=== PATIENT | male | born 1940 | race Caucasian/White ===

== ENCOUNTER 2019-09-03 18:32 | Emergency (ER) | payer MEDICARE, OTHER ==
[~2019-09-03] VITALS: Ht 177.8 cm; Wt 72.3 kg
--- NOTE | 2019-09-03 18:38 | NUR ---
Pt's family members brought the patient to the ED for evaluation. Pt was seen at [facility] in [place] for tremors in the right upper extremity and he appears to be hitting himself repeatedly. Pt's family members report the patient was released with a referral for mental health follow up but they want him to be evaluated further for medical concerns. Pt's [id number] Filipe's number given to the triage nurse to reach the him or the spouse regarding more details about the patient's situation.
[2019-09-03] MEDS ORDERED: LORazepam 1 MG tablet PO ONE (20:00)
[2019-09-03 21:44] LABS: BASOPHILS # (AUTO) 0.1 X10'3 (0-0.2); BASOPHILS % (AUTO) 0.8 % (0-1); EOSINOPHILS # (AUTO) 0.1 X10'3 (0-0.9); EOSINOPHILS % (AUTO) 0.8 % (0-6); HEMATOCRIT 41.2 % (42.0-52.0); HEMOGLOBIN 13.4 g/dl (14.0-17.9); LYMPHOCYTES # (AUTO) 1.3 X10'3 (1.1-4.8); LYMPHOCYTES % (AUTO) 10.9 % (21-51); MEAN CORPUSCULAR HGB CONC 32.6 g/dL (33.0-36.5); MEAN PLATELET VOLUME 7.8 FL (7.4-10.4); MONOCYTES # (AUTO) 1.1 X10'3 (0-0.9); NEUTROPHILS # (AUTO) 9.2 X10'3 (1.8-7.7); NEUTROPHILS % (AUTO) 78.5 % (42-75); PLATELET COUNT 268 X10'3 (140-440); RED BLOOD COUNT 4.48 X10'6 (4.70-6.10); WHITE BLOOD COUNT 11.8 X10'3 (4.5-11.0)
[2019-09-03 21:48] LABS: ALBUMIN 3.6 G/DL (3.4-5.0); ANION GAP 6 (8-16); BLOOD UREA NITROGEN 19 MG/DL (7-18); BUN/CREATININE RATIO 24.4 (5.4-32.0); CALCIUM 8.5 MG/DL (8.5-10.1); CHLORIDE 107 MMOL/L (99-107); CREATININE 0.78 MG/DL (0.60-1.10); GLUCOSE 232 MG/DL (70-104); POTASSIUM 3.3 MMOL/L (3.5-5.1); SODIUM 142 MMOL/L (135-145); TOTAL CARBON DIOXIDE 29.5 MMOL/L (24-32); eGFR > 90 ML/MIN
[2019-09-03 22:28] VITALS: BP 167/67
== END 2019-09-03 22:30 | disposition home or self-care (01) ==
LOC: ER 18:34
DX: R25.2 Cramp and spasm (principal)
CPT/HCPCS: 36415; 80048; 85025; 99284

== ENCOUNTER 2019-11-12 14:13 | Inpatient (IN) | payer MEDICARE, OTHER ==
[~2019-11-12] VITALS: Ht 177.8 cm; Wt 75.6 kg
[2019-11-12 14:40] VITALS: BP 156/78
[2019-11-12] MEDS ORDERED: mag hydrox/Alum hydrox/simeth 30ml oral suspension PO PRN (15:00)
[2019-11-12] MEDS ORDERED: loperamide 2mg capsule PO PRN (15:00)
[2019-11-12] MEDS ORDERED: magnesium hydroxide 30ml (MOM) UD suspension PO PRN (15:00)
[2019-11-12] MEDS ORDERED: traZODone 50mg tablet PO PRN (15:00)
[2019-11-12] MEDS ORDERED: acetaminophen 325mg tablet PO PRN ×2 (15:00)
--- NOTE | 2019-11-12 15:18 | NUR ---
Noted that pt on a CHO controlled diet with [facility] T2DM, A1c pending at this time. Will continue to follow and monitor need for DM education pending A1c results. Addendum: 11/12/19 at [address] Amended: Links added.
[2019-11-12] MEDS ORDERED: INSU100I31 SQ (16:43)
[2019-11-12] MEDS ORDERED: INSU100I52 SQ (16:43)
[2019-11-12] MEDS ORDERED: TRAZ-256 PO (16:43)
[2019-11-12] MEDS ORDERED: LEVO175T2 PO (16:43)
[2019-11-12] MEDS ORDERED: INSULIN ASPART 4 UNIT SQ SCH (17:15)
--- NOTE | 2019-11-12 17:39 | NUR ---
ADMIT NOTE Patient arrived at [facility] at 1445. Patient was escorted via wheelchair with Crystal, PCT and security. Patient presents as calm and cooperative. Patient showered and changed into green unit scrubs. Belongings were inventoried. Advisement was reviewed and given to patient, pt. voices understanding. Patient denies SI, states I was feeling like that because of these shakes and pt. shakes hand back and forth. Pt. states they gave me some kind of medicine and it helped, but unsure what medication it was. Pt. states I hope they figure it out, that is why I am here. Denies H/I, AH/VH. Noted some tremors in hands, but seems to be controllable. Pt. states I learned to deep breath and this seems to help. Reports some anxiety 08/07. Pt. is DM Type 1- he takes Novolog flexpen 4 units before each meal. POC blood glucose was 165 upon admit to [facility]. Basaglar 30 units HS. Reports trouble falling asleep, recently started on Trazadone 100mg HS. Noted pt. to be a little unstable when walking and standing. Patient states he sometimes uses a FWW at home. Last BM was 11/10 HS and was hard. Pt. 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
[2019-11-12] MEDS ORDERED: insulin Lispro (HumaLOG) vial - multi-dose SQ ONE (18:36)
[2019-11-12 20:10] VITALS: BP 162/78
[2019-11-12] MEDS ORDERED: insulin glargine (Lantus) pen - multi-dose SQ SCH (21:00)
[2019-11-12] MEDS: traZODone 50mg tablet PO PRN (21:22)
--- NOTE | 2019-11-12 21:29 | NUR ---
Patients night time glucose was 231. Per day shift inside sales agent time Lantus dose of 30 units is to remain that dose, no adjustments. This was verified by Dr. Romero and Reyna, insole filler.
[2019-11-12] MEDS: LORazepam 1 MG tablet PO PRN (22:06)
--- NOTE | 2019-11-12 22:06 | NUR ---
Patient is awake and complaining of anxiety and not feeling sleepy. Ativan 1mg PO given.
[2019-11-12] MEDS ORDERED: OLANZapine 5mg rapidly disint. tablet PO STA (22:39)
[2019-11-12] MEDS ORDERED: LORazepam 1 MG tablet PO ONE (22:40)
--- NOTE | 2019-11-12 23:01 | NUR ---
Patient continues to exhibit agitation. Patient complains of not sleeping and gets in a verbal argument and dispute with his roommate. contacted by [facility], orders received for Ativan 2 mg, Zyprexa Zytis 10 mg now. This was given. In addition Dr. Pink gave an order to repeat the Zyprexa Zytis in one hour prn.
--- NOTE | 2019-11-13 01:40 | NUR ---
Nursing Progress Note: Legal hold:5150 Client on involuntary status for: DTS. Report received from CHRISTINE Cintron with use of SBAR Why are they here: Patient arrived at [facility] at 1445. Patient was escorted via wheelchair with Crystal, PCT and security. Patient presents as calm and cooperative. Patient showered and changed into green unit scrubs. Belongings were inventoried. Advisement was reviewed and given to patient, pt. voices understanding. Patient denies SI, states I was feeling like that because of these shakes and pt. shakes hand back and forth. Pt. states they gave me some kind of medicine and it helped, but unsure what medication it was. Pt. states I hope they figure it out, that is why I am here. Denies H/I, AH/VH. Noted some tremors in hands, but seems to Assessment What has happened this shift: This patient is in his room following shift change. He is supine in bed, he has a walker at bedside. Patient stands to greet this fiction writer. Patient brings this writers attention to his right hand. Patient tells this fiction writer that " the only reason I'm here is to get some rest, and to get my hand tremors under control." The patients speech is pressured. He makes direct eye contact. Patient is agitated, he tells this fiction writer that he is supposed to get "some sort of medication for sleep, two large pills." The patient denies H/I, S/I, or any hallucinations. Patients evening blood sugar was 231. Patient reported to have eaten his full dinner. Lantus was given 30 units SQ. Late evening patient began experiencing more agitation. An Ativan 1mg was given PO. Trazadone 50 mg was given about 45 minutes prior for sleep without effect. Following Ativan this patient began exhibiting more agitation, he got into a verbal altercation with his roommate. Dr. Pink was contacted. Orders were given for Zyprexa Zytis 10 mg and Ativan 2mg. The patient took those medications as requested. The patient gradually went to sleep. Frequent rounding is being done to ensure patient safety. S/I, H/I: Patient denies. A/VH: Patient denies. Sleep: Will tally at 0500 hours. ADL's: Independent, patient uses walker. Group attendance: None on day shift. Were med's taken: Yes, patient is medication compliant. Any med S/E: None noted. Mental Status Exam Appearance: Somewhat disheveled looking, wearing green scrubs. Eye contact: Fair. Behavior: Agitated, angry at times. Speech: Pressured. Mood:Depressed. Affect: Flat. Thought process: Minimizes need to be here. Thought Content: Repetitive statements about just being here to get rest and stop right hand tremors. Cognition: Alert and oriented to place and year, not to situation. Insight: Poor. Judgment: Poor. Interventions PRN's used: Trazadone, Ativan, Zyprexa Zytis. Therapeutic interventions: 1:1 assessment, maintained a safe and therapeutic environment, provided clear and simple instructions, monitored behavior and need for intervention, provided redirection/reassurance as needed, encouragement to perform personal hygiene, limit setting, positive reinforcement, Q 15 minute safety checks. Restraints/seclusion/emergency medication: N/A Justification of Continued Inpatient Treatment: Pt continues to require a safe and supportive environment with medication adjustments to decrease risk of rehospitalization.
[2019-11-13] MEDS: insulin Lispro (HumaLOG) vial - multi-dose SQ SCH ×3 (07:00→18:09)
[2019-11-13 07:13] LABS: HEMOGLOBIN A1C 9.1 % (4.5-6.2)
[2019-11-13 07:14] LABS: CHOL/HDL RATIO 2.4 (0.00-4.99); CHOLESTEROL 132 MG/DL (0-200); HDL CHOLESTEROL 56 MG/DL (35-60); LDL CHOLESTEROL 60 MG/DL (50-100); TRIGLYCERIDES 83 MG/DL (20-135)
[2019-11-13] MEDS ORDERED: dextrose ORAL solution 15 GM/59 ML bottle PO PRN (07:25)
[2019-11-13] MEDS: dextrose ORAL solution 15 GM/59 ML bottle PO PRN (07:36)
[2019-11-13] MEDS: levoTHYROXINE 175mcg tablet PO SCH (07:36)
[2019-11-13 07:54] VITALS: BP 104/65
--- NOTE | 2019-11-13 09:12 | NUR ---
Hypoglycemic Episode: Obtained pt's BS this AM and was 52, one Glucose-Shot administered per protocol and rechecked pt. in 15 min. BS was 69. Pt. was then able to eat 100% of his breakfast, rechecked BS and was 107. Held pt's scheduled 4units of Loli, will endorse to MD and continue to monitor..
--- NOTE | 2019-11-13 10:00 | NUR ---
Group Therapy: Process Group This Clinicians goals for this process group were as follows: (1) Ask scaling questions about Patients current anxiety, depression, and irritability symptoms as a check-in. (2) Share with Patients psychoeducation about the importance of being able to identify safe, and supportive people who can assist them with their mental and emotional needs. (3) Share psychoeducation on interpersonal boundaries and considerations to assist Patients in developing the ability to discern which groups and individuals will be helpful in assisting them during times of emotional escalation and crisis. (4) Engage Patients in discussion of the topics discussed within the group milieu. Patient arrived to the group milieu approximately 10 minutes after the start of the group. He ambulated with the assistance of a walker. Patient entered the milieu and began talking to this Clinician, which interrupted the flow of the discussion during the process group. Per this Clinician's impression, Patient's speech was difficult to understand. Due to this, this Clinician had to get closer to Patient and ask him to repeat himself several times. Patient asked what the focus of the group was. This Clinician stated it was about developing awareness of interpersonal boundaries and questions that Patients could ask of others to recruit safe people who could support them in their mental health journey. Patient then asked if the group was about the, "Lord." This Clinician said that it was not about the Lord. Patient uttered a few more verbalizations that this Clinician did not understand and quietly left the room. Patient did not provide answers to scaling questions about his depression, anxiety, and irritability symptoms, nor did he participate in discussion within the group milieu. Dalton Crespo MA, BREN Addendum: 11/13/19 at 1111 by Dalton Crespo SS Amended: Links added.
--- NOTE | 2019-11-13 10:28 | NUR ---
DM Consult: Pt A1C results 9.1. Written DM ed faxed to DESTINI and ACE astudillo/w RN regarding placing ed in pt chart so can have written ed materials once appropriate upon discharge. Addendum: 11/13/19 at [address] Amended: Links added.
[2019-11-13] MEDS ORDERED: QUEtiapine 25mg tablet PO PRN (17:20)
--- NOTE | 2019-11-13 17:32 | NUR ---
Nursing Progress Note: Legal hold: 5150 Client on involuntary status for DTS Report received from nurse with use of SBAR: CHRISTINE Orellana Why are they here: Pt. admitted from [facility] on a 5150 for DTS. On admission he denies SI, states I was feeling like that because of these shakes and pt. shakes hand back and forth. Pt. states they gave me some kind of medicine and it helped, but unsure what medication it was. Pt. states I hope they figure it out, that is why I am here. Denies H/I, AH/VH. Noted some tremors in hands, but seems to be controllable. Pt. states I learned to deep breath and this seems to help. Reports some anxiety 08/07. Assessment What has happened this shift: Received pt. laying in bed awake at the beginning of the shift, this rfp writer introduced self and established rapport. Pt. presents as cooperative, fatigued, restless, guarded, and withdrawn. 1:1 completed at bedside, pt. is A&O X3, states, "I'm here to get rid of my tremors and get my sleep straightened out." Pt. denies any S/I, H/I, or A/V/HALEY, however he does present with some paranoid thoughts. He makes the paranoid delusional statement, "Half the population is going to from this coronavirus I think." Pt.'s thought process is circumstantial throughout the assessment, and he continues to perseverate on the insomnia he has been experiencing, states, "I lay there, think about things, and I can't sleep." Obtained new order from DAVID Bahena for Seroquel 50mg, MRX1 in one hour, will endorse to Noc shift. S/I, H/I: Denies A/VH: Denies, does not appear internally preoccupied Sleep: Pt. is very preoccupied with chronic insomnia he has been experiencing for some time, however he reports that he was able to sleep last night after taking sleeping medication (got one time dose of Zyprexa 10mg and Ativan 2mg). Sleep hours are 6. ADL's: Uses FWW Group attendance: Yes Were meds taken:Yes Any med S/E:None Mental Status Exam Appearance: Neat, appropriately dressed Eye contact: Good Behavior: Cooperative, fatigued, restless, guarded, and withdrawn Speech: Soft, delayed response at times Mood: Guarded and withdrawn Affect: Blunted Thought process: Circumstantial Thought Content: Paranoid delusional Cognition: A&O X3 (not to reason here) Insight: Poor Judgment: Poor Interventions PRN's used: None Therapeutic interventions: Introduced self and established rapport, ensured contract for safety, maintained a safe and therapeutic environment, provided clear and simple instruction, monitored behaviors and need for intervention, maintained fall precautions and Q 15min safety checks. Restraints/seclusion/emergency medication: N/A Justification of Continued Inpatient Treatment: Pt. requires interruption of current crisis, medication adjustments, and a safe and supportive environment.
[2019-11-13 19:00] VITALS: BP 149/83
[2019-11-13] MEDS: insulin glargine (Lantus) pen - multi-dose SQ SCH (21:00)
[2019-11-13] MEDS: LORazepam 1 MG tablet PO PRN (21:54)
[2019-11-13] MEDS: traZODone 50mg tablet PO PRN (22:50)
[2019-11-13] MEDS ORDERED: LORazepam 1 MG tablet PO ONE (23:40)
[2019-11-13] MEDS ORDERED: OLANZapine 5mg rapidly disint. tablet PO ONE (23:40)
--- NOTE | 2019-11-13 23:50 | NUR ---
Patient is awake and ambulatory. Patient complains of agitation and inability to sleep. Patient has had Trazatone 100 mg, Seroquel 50 mg, and Ativan 1 mg. DAVID Stone was called. Orders received for Zyprexa Zytis 5mg MR X1, and Ativan 1mg PO.
--- NOTE | 2019-11-14 00:47 | NUR ---
Patient ambulates to nursing station. Complaining of not being able to sleep still. A MR order of Jem Moulton will be given.
[2019-11-14] MEDS ORDERED: OLANZapine 5mg rapidly disint. tablet PO ONE (00:50)
--- NOTE | 2019-11-14 02:27 | NUR ---
Nursing Progress Note: Legal hold: 5150 Client on involuntary status for DTS Report received from CHRISTINE Cintron with use of SBAR. Why are they here: Pt. admitted from [facility] on a 5150 for DTS. On admission he denies SI, states I was feeling like that because of these shakes and pt. shakes hand back and forth. Pt. states they gave me some kind of medicine and it helped, but unsure what medication it was. Pt. states I hope they figure it out, that is why I am here. Denies H/I, AH/VH. Noted some tremors in hands, but seems to be controllable. Pt. states I learned to deep breath and this seems to help. Reports some anxiety 08/07. Assessment What has happened this shift: Patient is resting in his room after shift change. Patient is oriented to person, place, time, not to situation. Patient states he slept well the previous night, he states he is concerned about not being to sleep once again. This patient is still concerned about his tremors in his right hand. Patient minimizes questions about any psychological difficulties. Patient makes good eye contact and is friendly. At night time medication pass patient once again expresses concern about not being able to sleep. After doses of seroquel and ativan this patient is still wide awake. Consult with PA by mela. Orders received for Zyprexa Zytis given at 5 mg PO in conjunction with Ativan 1 mg PO. The Zyprexa Zytis was repeated once. The patient finally surrendered to sleep. Following dinner and snacks patients glucose check was 88, the night time Lantus was held. S/I, H/I: Denies. A/VH: Denies, does not appear internally preoccupied Sleep: Pt required Ativan, Seroquel, Trazadone, then Zyprexa to get to sleep. Will tally hours at 0500 hours. ADL's: Independent. Patient uses a walker. Group attendance: Yes, on the day shift. Were meds taken:Yes, patient is medication compliant. Any med S/E:None noted or observed. Mental Status Exam Appearance: Neat, appropriately dressed, Eye contact: Good, Behavior: Cooperative, self isolates, paranoia. Speech: Soft, patient mumbles. Mood: Guarded and withdrawn. Affect: Blunted. Thought process: Circumstantial. Thought Content: Paranoid delusional. Cognition: A&O X3. Not to situation. Insight: Poor. Judgment: Poor. Interventions: PRN's used: None Therapeutic interventions: Introduced self and established rapport, ensured contract for safety, maintained a safe and therapeutic environment, provided clear and simple instruction, monitored behaviors and need for intervention, maintained fall precautions and Q 15min safety checks. Restraints/seclusion/emergency medication: N/A Justification of Continued Inpatient Treatment: Pt. requires interruption of current crisis, medication adjustments, and a safe and supportive environment.
[2019-11-14] MEDS: levoTHYROXINE 175mcg tablet PO SCH (07:09)
--- NOTE | 2019-11-14 07:15 | NUR ---
Hypoglycemic Episode: Obtained pt's AM BS and was 60, per protocol administered 15ML of oral dextrose with a protein snack. Rechecked pt's BS in 15 minutes and was 120, will endorse to MD and continue to monitor.
[2019-11-14] MEDS: dextrose ORAL solution 15 GM/59 ML bottle PO PRN (07:20)
[2019-11-14 08:00] VITALS: BP 141/66
[2019-11-14] MEDS: insulin Lispro (HumaLOG) vial - multi-dose SQ SCH ×2 (08:47→13:32)
--- NOTE | 2019-11-14 11:13 | NUR ---
Nursing Progress Note: Legal hold: 5150 Client on involuntary status for DTS Report received from nurse with use of SBAR: Meli Grier RN Why are they here: Pt. admitted from [facility] on a 5150 for DTS after reporting that he felt stressed out r/t uncontrollable body movements and wished he would would . Per report, pt. had tried to hang himself, but was unable to tie the noose. On admission pt. denied SI, stated, I was feeling like that because of these shakes and pt. shakes hand back and forth. Pt. states they gave me some kind of medicine and it helped, but unsure what medication it was. Pt. states I hope they figure it out, that is why I am here. Denies H/I, AH/VH. Noted some tremors in hands, but seems to be controllable. Pt. states I learned to deep breath and this seems to help. Reports some anxiety 08/07. Assessment What has happened this shift: Received pt. sleeping in bed at the beginning of the shift, awoke to obtain BS and pt. was again hypoglycemic (see previous note), despite HS Lantus being held. Pt. continues to present as cooperative, however is fatigued and withdrawn, reports he again had trouble sleeping last night and did not fall asleep until early this morning. 1:1 completed at bedside, pt. continues to deny any S/I, states, "That was a mistake, they gave me some new medication and it gave me the shakes, that's why I said that." Pt. does not recall what medication this was, however he denies any current tremors and none observed by this sql report writer. Pt. also denies any depression or anxiety, but continues to perseverate on insomnia, and his thought process remains circumstantial. No delusional statements made this shift, and pt. encouraged to stay up during the day and not to nap because this will help him to sleep better at night, he reported understanding. He ambulates intermittently using FWW throughout the shift, and attends all meals interacting minimally with others. This sql report writer later spoke to pt's on the telephone with his consent. She reports that the pt. recently saw a neurologist in [place], who encouraged him to follow-up with a counselor in order to re-program his brain to be able to go to sleep. Will endorse this information to Dr. Becker, along with Sundar Reema's request to speak with the MD. S/I, H/I: Denies A/VH: Denies, does not appear internally preoccupied Sleep: Pt. reports he again had trouble sleeping last night, and was not able to fall asleep until early this morning. However, sleep hours are 7. ADL's: Uses FWW Group attendance: No Were meds taken:Yes Any med S/E:None Mental Status Exam Appearance: Neat, appropriately dressed Eye contact: Good Behavior: Cooperative, fatigued, guarded, and withdrawn Speech: Soft, delayed response at times (pt. is TRIBAL) Mood: Pleasant, however withdrawn Affect: Blunted Thought process: Circumstantial Thought Content: WNL, with some confusion at times (pt. is not able to state why he is here) Cognition: A&O X3 (not to reason here) Insight: Poor Judgment: Poor Interventions PRN's used: None Therapeutic interventions: Ensured contract for safety, maintained a safe and therapeutic environment, provided clear and simple instructions, monitored behaviors and need for intervention, monitored BS and administered insulin per orders, encouraged pt. not to nap during the day to help improve his sleep at night, maintained fall precautions and Q 15min safety checks. Restraints/seclusion/emergency medication: N/A Justification of Continued Inpatient Treatment: Pt. requires interruption of current crisis, medication adjustments, and a safe and supportive environment.
[2019-11-14] MEDS ORDERED: quetiapine 100mg tablet PO PRN (14:10)
[2019-11-14] MEDS ORDERED: QUEtiapine 25mg tablet PO PRN (14:10)
--- NOTE | 2019-11-14 16:16 | NUR ---
REGARDING HS LANTUS: PER DR. COREA, CALL MD BEFORE GIVING HS LANTUS DUE TO EXTREMELY LOW AM BLOOD SUGARS. Also, pt's Humalog to be given with dinner has been reduced to 3 units, and pt. has been ordered a sandwich for HS.
[2019-11-14] MEDS ORDERED: insulin Lispro (HumaLOG) vial - multi-dose SQ SCH (17:30)
--- NOTE | 2019-11-14 18:12 | NUR ---
[facility] SS met w/pt and engaged him in dcp activities. Per discussion, pt reports no SI/HI/delusions and is looking forward to returning home. Pt reports that he discovered that he enjoys reading during his stay here and plans to continue this activity @ home as he finds that it is relaxing. SS had t/c w/pt's & engaged her in [facility] activity & safety planning. Per discussion, pt's reports that she manages his meds and administer them at home, she also indicated they have family & friends nearby as well as the support of their yarsanism community. She will call pt's PMD's office on Sunday to schedule a post-hospital follow-up for pt. Plan: Pt 5150 expires on the , if pt is d/c, can be contacted to arrange transportation home for pt. Cheli Angulo LCSW Addendum: 11/14/19 at 1816 by Cheli MOISE Amended: Links added.
[2019-11-14 20:00] VITALS: BP 153/74
[2019-11-14] MEDS ORDERED: LORazepam 1 MG tablet PO SCH (21:00)
[2019-11-14] MEDS ORDERED: olanzapine 10mg tablet PO SCH (21:00)
[2019-11-14] MEDS: insulin glargine (Lantus) pen - multi-dose SQ SCH (21:42)
[2019-11-14] MEDS ORDERED: LORazepam 1 MG tablet PO ONE (22:55)
[2019-11-15] MEDS ORDERED: traZODone 50mg tablet PO ONE (00:20)
--- NOTE | 2019-11-15 00:39 | NUR ---
Nursing Progress Note: Legal hold: 5150 Client on involuntary status for DTS Report received from CHRISTINE Fernando with use of SBAR. Why are they here: Pt. admitted from [facility] on a 5150 for DTS. On admission he denies SI, states I was feeling like that because of these shakes and pt. shakes hand back and forth. Pt. states they gave me some kind of medicine and it helped, but unsure what medication it was. Pt. states I hope they figure it out, that is why I am here. Denies H/I, AH/VH. Noted some tremors in hands, but seems to be controllable. Pt. states I learned to deep breath and this seems to help. Reports some anxiety 08/07. Assessment What has happened this shift: Patient is isolating in his room, he is resting in bed, low fowlers position, he plays solitaire. 1:1 Interview: This patient is focused on getting the right medications to sleep at night. I need good rest. The patient is upbeat, his thought process is more linear. The patient states he ate a full meal at dinner. Dr. Becker spoke with patients , per Dr. Deleon the patients advised that the patient has to have a sandwich prior to bedtime or not take Lantus. Per Dr. Becker this patient was given a turkey sandwich (38 Grams of Complex Carbs) at 2030 hours. At 2100 hours patients glucose was 328. Dr. Deleon was called at home and advised, per Dr Deleon the 2100 Lantus dose is lowered from 25 Units to 20 Units. Patient was also given Zyprexa 10 mg PO, and Ativan 1 mg PO. If patient does not sleep the PO Ativan will be repeated. The patient ambulates well with the use of his walker. He is denying any S/I or H/I tonight. 00:15 hours: Patient is sitting up at bedside. Patient states he cant sleep. Dr. Deleon contacted [facility]. Orders received for Trazadone 100 mg. This will be administered. Patient is medication compliant with Trazadone adm. Patient was given a teaching about orthostatic hypotension as a possible side affect of Trazadone. The patient agrees if he gets up tonight from bed he will slowly adjust from sitting to standing. S/I, H/I: Denies. A/VH: Denies, does not appear internally preoccupied Sleep: Patient is resistant to sleep. See notes. ADL's: Independent. Patient uses a walker. Group attendance: N/A. 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 Were meds taken:Yes, patient is medication compliant. Any med S/E: None noted or observed. Mental Status Exam Appearance: Neat, appropriately dressed, green scrub top, chartreuse color pants. Eye contact: Good. Behavior: Cooperative, self isolates, paranoia. Speech: Soft, patient mumbles. Mood: Guarded and withdrawn. Affect: Blunted. Thought process: Circumstantial, some improvement from previous night. Thought Content: Paranoid, focused on not sleeping. Cognition: A&O X3. Not to situation. Insight: Poor. Judgment: Poor. Interventions: PRN's used: Trazadone, Ativan Therapeutic interventions: Introduced self and established rapport, ensured contract for safety, maintained a safe and therapeutic environment, provided clear and simple instruction, monitored behaviors and need for intervention, maintained fall precautions and Q 15min safety checks. Restraints/seclusion/emergency medication: N/A Justification of Continued Inpatient Treatment: Pt. requires interruption of current crisis, medication adjustments, and a safe and supportive environment.
--- NOTE | 2019-11-15 07:15 | NUR ---
Blood Sugars: Obtained pt's blood sugar this AM and was 378, ordered 4 units of Lantus administered and BS reassessed in approximately 30 min and was 373. Pt. ate 100% of his breakfast, and Dr. Becker notified regarding pt's elevated BS, obtained order for 10 units of Humalog to be given, administered at approximately 0845. Pt's BS was reassessed at approximately [address] Becker again notified regarding continued hypoglycemia, order for an additional 6 units of Humalog to be administered. BS reassessed approximately 30min later and was 65. Juice and carbohydrate/protein snack administered. BS reassessed and was 60. Additional juice administered, BS reassessed and was 84. Again, assessed pt's BS just before lunch at approximately 1235 and was 23, pt. was talking and able to swallow, however reported feeling weak. 30mL of oral glucose administered and pt. ate 100% of lunch, BS rechecked in 15min per protocol and was 89. Dr. Becker advised, will continue to monitor.
[2019-11-15] MEDS: levoTHYROXINE 175mcg tablet PO SCH (07:17)
[2019-11-15] MEDS: insulin Lispro (HumaLOG) vial - multi-dose SQ SCH ×3 (07:38→18:10)
[2019-11-15 08:00] VITALS: BP 132/61
[2019-11-15] MEDS ORDERED: insulin Lispro (HumaLOG) vial - multi-dose SQ ONE ×2 (08:30→10:10)
--- NOTE | 2019-11-15 11:44 | NUR ---
Nursing Progress Note: Legal hold: 5150 Client on involuntary status for DTS Report received from nurse with use of SBAR: Meli Grier RN Why are they here: Pt. admitted from [facility] on a 5150 for DTS after reporting that he felt stressed out r/t uncontrollable body movements and wished he would would . Per report, pt. had tried to hang himself, but was unable to tie the noose. On admission pt. denied SI, stated, I was feeling like that because of these shakes and pt. shakes hand back and forth. Pt. states they gave me some kind of medicine and it helped, but unsure what medication it was. Pt. states I hope they figure it out, that is why I am here. Denies H/I, AH/VH. Noted some tremors in hands, but seems to be controllable. Pt. states I learned to deep breath and this seems to help. Reports some anxiety 08/07. Assessment What has happened this shift: Received pt. sleeping in bed at the beginning of the shift, awoke to obtain BS and pt. was hyperglycemic (see previous note), Dr. Becker notified. 1:1 completed at bedside, pt. continues to deny any S/I and also denies any depression or anxiety. He reports he only became suicidal when they gave him a new medication and this caused him to have tremors which made it difficult for him to do anything, even to eat. However, pt. denies any further tremors and none are observed. Pt. states, "I'm looking forward to getting home to see my babies" (referring to his dogs). Thought process appears to be more linear, and no delusional statements made this shift. Pt. again reported difficulty sleeping r/t the medications taking a while to take effect, states, "I just lay there thinking about all of the things I have to do." Again, encouraged pt. to stay up during the day and not to nap because this will help him to sleep better at night, he reported understanding and ambulated intermittently using FWW throughout the shift. Pt. remains cooperative and pleasant, however continues to be withdrawn interacting minimally with others. S/I, H/I: Denies A/VH: Denies, does not appear internally preoccupied Sleep: Pt. again reported difficulty sleeping r/t the medications taking a while to take effect, states, "I just lay there thinking about all of the things I have to do." Sleep hours are 1. ADL's: Uses FWW Group attendance: No Were meds taken:Yes Any med S/E:None Mental Status Exam Appearance: Neat, appropriately dressed Eye contact: Good Behavior: Cooperative, fatigued, guarded, and withdrawn Speech: Soft, delayed response at times (pt. is EYAK) Mood: Pleasant, however withdrawn Affect: Blunted Thought process: More linear, less circumstantial Thought Content: WNL, with some confusion at times (pt. is not able to state why he is here) Cognition: A&O X3 (not to reason here) Insight: Fair Judgment: Fair Interventions PRN's used: None Therapeutic interventions: Ensured contract for safety, maintained a safe and therapeutic environment, provided clear and simple instructions, monitored behaviors and need for intervention, monitored BS and obtained orders to treat hyperglycemia as needed, encouraged pt. not to nap during the day to help improve his sleep at night, maintained fall precautions and Q 15min safety checks. Restraints/seclusion/emergency medication: N/A Justification of Continued Inpatient Treatment: Pt. continues to require medication adjustments, and a safe and supportive environment. Addendum: 11/15/19 at 1327 by Analia Uriostegui RN At approximately 1330, pt. began having tremors in his rt. hand which made him feel slightly anxious, he states, "It will start there and sometimes go to my whole body." PRN Ativan administered, will continue to monitor.
[2019-11-15] MEDS: LORazepam 1 MG tablet PO PRN ×2 (13:23→22:19)
--- NOTE | 2019-11-15 14:38 | NUR ---
INSULIN ORDERS: Obtained orders from Dr. Becker to change Humalog back to 4 units with meals and Lantus to 30 units at HS, as this is pt's home regimen. However, Lantus only to be given if pt. has an HS snack, turkey sandwiches ordered, will endorse to Noc shift.
[2019-11-15 20:00] VITALS: BP 129/54
[2019-11-15] MEDS: insulin glargine (Lantus) pen - multi-dose SQ SCH (20:44)
[2019-11-15] MEDS ORDERED: amitriptyline 50mg tablet PO SCH (21:00)
--- NOTE | 2019-11-16 00:10 | NUR ---
Nursing Progress Note: Legal hold: 5150 Client on involuntary status for DTS Report received from nurse with use of SBAR: Kassie RN Why are they here: Pt. admitted from [facility] on a 5150 for DTS after reporting that he felt stressed out r/t uncontrollable body movements and wished he would would . Per report, pt. had tried to hang himself, but was unable to tie the noose. On admission pt. denied SI, stated, I was feeling like that because of these shakes and pt. shakes hand back and forth. Pt. states they gave me some kind of medicine and it helped, but unsure what medication it was. Pt. states I hope they figure it out, that is why I am here. Denies H/I, AH/VH. Noted some tremors in hands, but seems to be controllable. Pt. states I learned to deep breath and this seems to help. Reports some anxiety 08/07. Assessment What has happened this shift: Pt stayed in his room most of the shift. He said his room mate is wakening him with his loud voice. Pt given ear plugs to help muffle the sound. Pt ate his turkey sandwhich for snack. His Bs was 409 and 30 units given. Pt was awakened tyson by his room mate Prn ativan given and helpful. S/I, H/I: Denies A/VH: Denies, does not appear internally preoccupied Sleep: Pt. again reported difficulty sleeping r/t the medications taking a while to take effect, states, "I just lay there thinking about all of the things I have to do." Sleep hours are 1. ADL's: Uses FWW Group attendance: No Were meds taken:Yes Any med S/E:None Mental Status Exam Appearance: Neat, appropriately dressed Eye contact: Good Behavior: Cooperative, fatigued, guarded, and withdrawn Speech: Soft, delayed response at times (pt. is EMMONAK) Mood: Pleasant, however withdrawn Affect: Blunted Thought process: More linear, less circumstantial Thought Content: WNL, with some confusion at times (pt. is not able to state why he is here) Cognition: A&O X3 (not to reason here) Insight: Fair Judgment: Fair Interventions PRN's used: None Therapeutic interventions: Ensured contract for safety, maintained a safe and therapeutic environment, provided clear and simple instructions, monitored behaviors and need for intervention, monitored BS and obtained orders to treat hyperglycemia as needed, encouraged pt. not to nap during the day to help improve his sleep at night, maintained fall precautions and Q 15min safety checks. Restraints/seclusion/emergency medication: N/A Justification of Continued Inpatient Treatment: Pt. continues to require medication adjustments, and a safe and supportive environment. Addendum: 11/16/19 at 0512 by Sid Pedersen RN bs at [id number]
[2019-11-16] MEDS: levoTHYROXINE 175mcg tablet PO SCH (07:37)
[2019-11-16] MEDS: insulin Lispro (HumaLOG) vial - multi-dose SQ SCH ×3 (07:39→17:44)
[2019-11-16 07:50] VITALS: BP 150/74
--- NOTE | 2019-11-16 17:51 | NUR ---
Nursing Progress Note: Legal hold: Voluntary for DTS Report received from LYNDSEY Lau with use of SBAR Why are they here: Pt. admitted from [facility] on a 5150 for DTS after reporting that he felt stressed out r/t uncontrollable body movements and wished he would would . Per report, pt. had tried to hang himself, but was unable to tie the noose. On admission pt. denied SI, stated, I was feeling like that because of these shakes and pt. shakes hand back and forth. Pt. states they gave me some kind of medicine and it helped, but unsure what medication it was. Pt. states I hope they figure it out, that is why I am here. Denies H/I, AH/VH. Noted some tremors in hands, but seems to be controllable. Pt. states I learned to deep breath and this seems to help. Reports some anxiety 08/07. Assessment What has happened this shift: Received patient sleeping in bed at shift change, no distress noted. Pt. roused for breakfast. AM blood sugar was 311. Pt. denies SI/AH/VH. Pt. happy with how he slept last night even though his roommate kept him awake due to his snoring. Reports no hand tremors or neuropathy pain he r/t sleeping better. Sleep Assessment shows 7.75 hours. Pt. is compliant with care and medications. Pt. eats all meals in group room. Pt. is observed walking in [place] with his FWW, but otherwise isolates to his room. Pt. was tearful states he may have to put one of his dogs down; "he has diabetes like me." Reported headache 12/07. Blood sugar was 94. Administered Tylenol 650mg with effect. PM blood sugar was 167. Pt. states "I think I get to go home tomorrow." S/I, H/I: Denies both. A/VH: Denies both. Sleep: 7.75 hrs. per Sleep Assessment. Pt. reports "feeling he slept better." ADL's: Independent; Uses FWW Group attendance: No group on Sunday. Were meds taken: Yes, without hesitation Any med S/E: Denies. Mental Status Exam Appearance: Neat, clean, wearing green unit scrubs. Eye contact: Good Behavior: Cooperative, calm Speech: Soft, a little muffled, only has top dentures. Mood: Pleasant Affect: Congruent with mood. Thought process: Linear Thought Content: May have to put his dog down. Cognition: A&O x4 Insight: Fair Judgment: Fair Interventions PRN's used: Tylenol Therapeutic interventions: 1:1 therapeutic assessment, maintained a safe and therapeutic environment, provided clear and simple instructions, monitored behaviors and need for intervention, monitored BS encouraged pt. not to nap during the day to help improve his sleep at night, maintained fall precautions and Q 15min safety checks. Restraints/seclusion/emergency medication: N/A Justification of Continued Inpatient Treatment: Patient continues to require medication adjustments in a safe and supportive environment.
[2019-11-16] MEDS ORDERED: amitriptyline 25mg tablet PO PRN (18:00)
[2019-11-16 20:00] VITALS: BP 142/85
[2019-11-16] MEDS: insulin glargine (Lantus) pen - multi-dose SQ SCH (20:47)
[2019-11-16] MEDS ORDERED: amitriptyline 50mg tablet PO SCH (21:00)
[2019-11-16] MEDS: LORazepam 1 MG tablet PO PRN (21:22)
--- NOTE | 2019-11-17 00:06 | NUR ---
Nursing Progress Note: Legal hold: Voluntary for DTS Report received from CHRISTINE Fernando with use of SBAR Why are they here: Pt. admitted from [facility] on a 5150 for DTS after reporting that he felt stressed out r/t uncontrollable body movements and wished he would would . Per report, pt. had tried to hang himself, but was unable to tie the noose. On admission pt. denied SI, stated, I was feeling like that because of these shakes and pt. shakes hand back and forth. Pt. states they gave me some kind of medicine and it helped, but unsure what medication it was. Pt. states I hope they figure it out, that is why I am here. Denies H/I, AH/VH. Noted some tremors in hands, but seems to be controllable. Pt. states I learned to deep breath and this seems to help. Reports some anxiety 08/07. Assessment What has happened this shift: Pt awake and in his room at shift change complaining about room mate. wakening him up. Pt reports feeling increased anxiety. Prn Ativan and Elavil giveen with meds. Pt HS Bs 185 he ate his Atkins sandwich at snack time. Prn's effective pt sleeping. S/I, H/I: Denies both. A/VH: Denies both. Sleep: See sleep hrs. ADL's: Independent; Uses FWW Group attendance: No group on Sunday. Were meds taken: Yes, without hesitation Any med S/E: Denies. Mental Status Exam Appearance: Neat, clean, wearing green unit scrubs. Eye contact: Good Behavior: Cooperative, calm Speech: Soft, a little muffled, only has top dentures. Mood: Pleasant Affect: Congruent with mood. Thought process: Linear Thought Content: May have to put his dog down. Cognition: A&O x4 Insight: Fair Judgment: Fair Interventions PRN's used: Ativan Elivil Therapeutic interventions: 1:1 therapeutic assessment, maintained a safe and therapeutic environment, provided clear and simple instructions, monitored behaviors and need for intervention, monitored BS encouraged pt. not to nap during the day to help improve his sleep at night, maintained fall precautions and Q 15min safety checks. Restraints/seclusion/emergency medication: N/A Justification of Continued Inpatient Treatment: Patient continues to require medication adjustments in a safe and supportive environment.
[2019-11-17] MEDS: levoTHYROXINE 175mcg tablet PO SCH (07:22)
[2019-11-17] MEDS: insulin Lispro (HumaLOG) vial - multi-dose SQ SCH ×2 (07:53→12:33)
[2019-11-17 08:00] VITALS: BP 144/94
--- NOTE | 2019-11-17 10:00 | NUR ---
Group Therapy: Process Group This Clinicians goals for this process group were as follows: (1) Ask scaling questions about Patients current anxiety, depression, and irritability symptoms as a check-in. (2) Share psychoeducation about self-efficacy, and ego strength. (3) Provide psychoeducation on [employer] Drama triangleVictim, Persecutor, Rescuer dynamic. (4) Share psychoeducation on developing positive ego strengthpositive affirmations, positive self-talk, transitioning from a victim of circumstances to a survivor of circumstances. (5) Process Clients thoughts and reflections on this topic within the group milieu. Patient was present initially during the process group. Patient moved with the assistance of a walker. He was dressed in [facility] scrubs. This Clinician attempted to verbally engage Patient by greeting him, but Patient did not respond to him. This Clinician addressed him again. This time, Patient showed that he had taken his hearing aids out, and apparently did not hear this Clinician. Patient quietly eusebio and left with the assistance of his walker approximately 5 minutes after the start of the process group, and did not return. Patient did not participate in the discussion of ego strength, [employer]s drama triangle, and positive affirmation, not did he share answers to the scaling questions on his level of depression, anxiety, and anger/irritability. Dalton Crespo MA, BREN Addendum: 11/17/19 at 1132 by Dalton Crespo SS Amended: Links added.
--- NOTE | 2019-11-17 12:08 | NUR ---
Initial: Great appetite, 100% PO intake carb controlled diet. Noted that on 11/14 patient's blood glucose was as low as 23 after two humalog doses and that day BG went up to 402 mg/dl, the insulin doses have been revised to correlate with home dose per RN notes. BG 11/15 range between 94-348 mg/dl. Pt is on the hyperglycemia protocol. Recommend: 1. continue carb controlled diet 2. bowel care as needed 3. weekly wts Addendum: 11/17/19 at [address] Amended: Links added.
[2019-11-17] MEDS ORDERED: ATI1T PO (15:05)
[2019-11-17] MEDS ORDERED: LEVO175T2 PO (15:05)
[2019-11-17] MEDS ORDERED: AMIT100T61 PO (15:05)
--- NOTE | 2019-11-17 17:22 | NUR ---
DISCHARGE NOTE: Patient discharged from [facility] at . Patient was escorted to lobby by PETER Mohan. Patient was picked up by [facility] cab and will be transported to his home in [place] where his will be waiting. Reviewed discharge instructions with patient. Patient provided with resources. Personal belongings returned to patient. Patient was A&Ox4, very excited. Patient states he is going to go home and sit in his new recliner "I only had it one week before I came in here." Patient appreciative of the care he received at [facility].
== END 2019-11-17 16:30 | disposition home or self-care (01) | DRG 885 ==
LOC: ADULT MH 14:15
PROVIDERS: ADMIT Psychiatry & Neurology Psychiatry; ATTEND Psychiatry & Neurology Psychiatry
DX: F39 Unspecified mood [affective] disorder (principal); R45.851 Suicidal ideations; E03.9 Hypothyroidism, unspecified; E11.9 Type 2 diabetes mellitus without complications; F32.9 Major depressive disorder, single episode, unspecified; M54.9 Dorsalgia, unspecified; G25.81 Restless legs syndrome; G47.00 Insomnia, unspecified; Z79.4 Long term (current) use of insulin; Z87.891 Personal history of nicotine dependence
CPT/HCPCS: 36415; 80061; 82948; 83036; 84443; 87081; 99285; J1815